=== PATIENT | female | born 1960 | race Asian ===

== ENCOUNTER → 2017-09-16 | Outpatient (CLI) | payer OTHER | LOC: CIMAGING 09:55 | PROVIDERS: ATTEND Family Medicine | DX: Z12.31 Encounter for screening mammogram for malignant neoplasm of breast (principal) ==

== ENCOUNTER → 2018-10-13 | Outpatient (CLI) | payer OTHER | LOC: CIMAGING 07:14 | DX: Z12.31 Encounter for screening mammogram for malignant neoplasm of breast (principal) ==